=== PATIENT | female | born 1935 | race Caucasian/White ===

== ENCOUNTER 2017-01-23 15:16 | Emergency (ER) | payer MEDICARE, MEDICAID ==
--- NOTE | 2017-01-23 17:08 | EDM.PDOC ---
ED HPI ENT - General Chief Complaint: ENT Problem Stated Complaint: POST OP BLEEDING FROM NOSE Time Seen by Provider: 01/23/17 16:15 Source of Information: Reports: Patient History Limitations: Reports: No limitations - History of Present Illness INITIAL COMMENTS - FREE TEXT/NARRATIVE: Patient is a 81-year-old female who presents to ED with history of recent nosebleed out of both nares. Patient states she recently had a flexible bronchoscopy performed at [facility] for further evaluation of lung abnormalities. States she was almost home to [place] and had some bleeding from her nares that was controlled with direct pressure. She presents to the ED with no bleeding from her nares at this time. She did not feel as if there is any bleeding to the posterior aspect of her pharynx nor is there any nausea/ vomiting, dizziness, or known bleeding disorders. She takes no aspirin and is not chronically anticoagulated. She has no history of recurring nosebleeds. She denies any complaints at this time. Timing/Duration: Reports: Resolved prior to arrival Severity: mild Location: Reports: right nares, left nares - Related Data Allergies/ADRs: Allergies Allergy/AdvReac Type Severity Reaction Status Date / Time acetaminophen Allergy Rash Verified 01/23/17 15:39 [From Darvocet-N] aspirin Allergy Rash Verified 01/23/17 15:39 barley Allergy Rash Verified 01/23/17 15:39 codeine Allergy Rash Verified 01/23/17 15:39 diphenhydramine HCl Allergy Rash Verified 01/23/17 15:39 [From Benadryl] fexofenadine HCl Allergy Rash Verified 01/23/17 15:39 [From Vita] omeprazole [From Prilosec] Allergy Rash Verified 01/23/17 15:39 omeprazole magnesium Allergy Rash Verified 01/23/17 15:39 [From Prilosec] Penicillins Allergy Rash Verified 01/23/17 15:39 petrolatum,white Allergy Rash Verified 01/23/17 15:39 [From Vaseline] Pork/Porcine Containing Allergy Rash Verified 01/23/17 15:39 Products salmeterol xinafoate Allergy Rash Verified 01/23/17 15:39 [From Serevent] theophylline anhydrous Allergy Rash Verified 01/23/17 15:39 [From Howard-Dur] wheat Allergy Rash Verified 01/23/17 15:39 SARDINES Allergy Severe Cough Uncoded 07/22/15 15:16 rye Allergy Mild Rash Uncoded 07/22/15 15:16 seafood Allergy Airway Uncoded 07/22/15 16:59 Tightness Home Meds: Home Meds Calcium Carb & Citrate/Vit D3 [Calcium + Vitamin D3 Caplet] 1,200 mg PO DAILY [History] Clobetasol [Clobetasol Propionate 0.05%] 15 gm TOP BID 03/20/15 [History] Fluticasone Propionate [Flovent HFA 110 MCG] 2 puff INH BID 03/20/15 [History] Isosorbide Mononitrate [Isosorbide Mononitrate ER] 30 mg PO DAILY 03/20/15 [ History] Latanoprost [Xalatan 0.005% Ophth Soln] 1 drop EYEBOTH BEDTIME 03/20/15 [History ] Omeprazole 20 mg PO DAILY 03/20/15 [History] Simvastatin [Zocor] 10 mg PO BEDTIME 03/20/15 [History] Ubidecarenone [Co Q10] 100 mg PO DAILY 03/20/15 [History] Hydrochlorothiazide/Lisinopril [Lisinopril/HCTZ 10-12.5 MG] 1 tab PO DAILY #30 tab 03/22/15 [Rx] Acetaminophen [Tylenol] 2 tab PO ASDIRECTED PRN 01/23/17 [History] Albuterol [Ventolin HFA] 2 puff INH ASDIRECTED PRN 01/23/17 [History] Cranberry 1 tab PO DAILY 01/23/17 [History] Estradiol [Estrace 0.01% Vaginal Crm] 0.5 g TOP ASDIRECTED 01/23/17 [History] Past Medical History HEENT History: Reports: Cataract, Impaired vision Other HEENT History: blind in left eye Cardiovascular History: Reports: Hypertension 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: Reports: Asthma 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 Denies: Nose pain Cardiovascular: Denies: Lightheadedness GI/Abdominal: Denies: Nausea, Vomiting Neurological: Denies: dizziness Hematologic/Lymphatic: Denies: easy bleeding, easy bruising ED EXAM, ENT - Physical Exam Exam: See Below Exam Limited By: No limitations General Appearance: alert, WD/WN, no apparent distress, other (Dry blood on the patient's shirt) Ears: hearing grossly normal Nose: normal inspection, normal mucousa, dried blood (Nares bilaterally no active bleeding). No: nasal deformity, nasal swelling, nasal tenderness, active bleeding Mouth/Throat: Normal inspection, Normal oropharynx, Other (No blood to the posterior pharynx) Neck: normal inspection, supple Respiratory/Chest: no respiratory distress, lungs clear, normal breath sounds Cardiovascular: normal peripheral pulses, regular rate, rhythm Neurological: alert, oriented, normal cognition, no motor/sensory deficits Psychiatric: normal affect, normal mood Skin: Warm, Dry, Intact, Normal color Course - Vital Signs Last Recorded V/S: Last Vital Signs Temp 97.4 F 01/23/17 15:51 Pulse 92 01/23/17 15:51 Resp 18 01/23/17 15:51 BP 177/88 H 01/23/17 15:51 Pulse Ox 94 L 01/23/17 15:51 - Re-Assessments/Exams Free Text/Narrative Re-Assessment/Exam: Examination did not elicit any findings of active bleeding. Bleeding resolved prior to arrival. Will discharge patient home with instructions as documented. 01/23/17 17:05 Departure - Departure Time of Disposition: 17:05 Disposition: Home, Self-Care 01 Condition: good Clinical Impression: Epistaxis Instructions: Nosebleed, [id number] Referrals: Khadijah Kline MD [Primary Care Provider] - Forms: ED Department Discharge Additional Instructions: As discussed if you experience additional nosebleeds apply direct pressure to the nares bilaterally for 15 minutes. Can apply cold compress as well. If The bleeding does not stop please return back to the ED. Suggest not blowing her nose or picking at since this can cause additional trauma causing bleeding. Apply Vaseline to each nare once daily as needed.
== END 2017-01-23 17:18 | disposition home or self-care (01) ==
LOC: JD.ED 15:16
CPT/HCPCS: 99282; 99283

== ENCOUNTER 2017-11-24 05:23 | Emergency (ER) | payer MEDICARE, MEDICAID ==
--- NOTE | 2017-11-24 05:26 | EDM.PDOC ---
ED HPI GENERAL MEDICAL PROBLEM - General Chief Complaint: Laceration Stated Complaint: [facility] Time Seen by Provider: 11/24/17 05:26 - History of Present Illness INITIAL COMMENTS - FREE TEXT/NARRATIVE: 82-year-old female brought in by EMS with a head injury. Patient was coming back to bed and set on her bed and missed she landed on the floor and bumped her head into a piece of furniture besides a bump on her head patient denies any other injury she's had no loss of consciousness. Patient denies any nausea vomiting confusion or balance problems. Patient has not had problems with palpitations breathing difficulty shortness of breath or chest discomfort. Left Head Pain Score (Numeric/FACES): 7 - Related Data Allergies Allergy/AdvReac Type Severity Reaction Status Date / Time acetaminophen Allergy Rash Verified 01/23/17 15:39 [From Darvocet-N] aspirin Allergy Rash Verified 01/23/17 15:39 barley Allergy Rash Verified 01/23/17 15:39 codeine Allergy Rash Verified 01/23/17 15:39 diphenhydramine HCl Allergy Rash Verified 01/23/17 15:39 [From Benadryl] fexofenadine HCl Allergy Rash Verified 01/23/17 15:39 [From Vita] omeprazole [From Prilosec] Allergy Rash Verified 01/23/17 15:39 omeprazole magnesium Allergy Rash Verified 01/23/17 15:39 [From Prilosec] Penicillins Allergy Rash Verified 01/23/17 15:39 petrolatum,white Allergy Rash Verified 01/23/17 15:39 [From Vaseline] Pork/Porcine Containing Allergy Rash Verified 01/23/17 15:39 Products salmeterol xinafoate Allergy Rash Verified 01/23/17 15:39 [From Serevent] theophylline anhydrous Allergy Rash Verified 01/23/17 15:39 [From Howard-Dur] wheat Allergy Rash Verified 01/23/17 15:39 SARDINES Allergy Severe Cough Uncoded 07/22/15 15:16 rye Allergy Mild Rash Uncoded 07/22/15 15:16 seafood Allergy Airway Uncoded 07/22/15 16:59 Tightness Home Meds: Home Meds Calcium Carb & Citrate/Vit D3 [Calcium + Vitamin D3 Caplet] 1,200 mg PO DAILY [History] Clobetasol [Clobetasol Propionate 0.05%] 15 gm TOP BID 03/20/15 [History] Fluticasone Propionate [Flovent HFA 110 MCG] 2 puff INH BID 03/20/15 [History] Isosorbide Mononitrate [Isosorbide Mononitrate ER] 30 mg PO DAILY 03/20/15 [ History] Latanoprost [Xalatan 0.005% Ophth Soln] 1 drop EYEBOTH BEDTIME 03/20/15 [History ] Omeprazole 20 mg PO DAILY 03/20/15 [History] Simvastatin [Zocor] 10 mg PO BEDTIME 03/20/15 [History] Ubidecarenone [Co Q10] 100 mg PO DAILY 03/20/15 [History] Hydrochlorothiazide/Lisinopril [Lisinopril/HCTZ 10-12.5 MG] 1 tab PO DAILY #30 tab 03/22/15 [Rx] Acetaminophen [Tylenol] 2 tab PO ASDIRECTED PRN 01/23/17 [History] Albuterol [Ventolin HFA] 2 puff INH ASDIRECTED PRN 01/23/17 [History] Cranberry 1 tab PO DAILY 01/23/17 [History] Estradiol [Estrace 0.01% Vaginal Crm] 0.5 g TOP ASDIRECTED 01/23/17 [History] Past Medical History HEENT History: Reports: Cataract, Impaired 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 Cardiovascular History: Reports: Hypertension 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: Reports: 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) 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 Social & Family History - Family History Family Medical History: Noncontributory - Tobacco Use Smoking Status *Q: Never Smoker Second Hand Smoke Exposure: No - Caffeine Use Caffeine Use: Reports: Coffee - Recreational Drug Use Recreational Drug Use: No ED ROS GENERAL - Review of Systems Review Of Systems: See Below Constitutional: Reports: No Symptoms HEENT: Reports: No Symptoms Respiratory: Reports: No Symptoms Cardiovascular: Reports: No Symptoms GI/Abdominal: Reports: No Symptoms : Reports: No Symptoms Skin: Reports: Other (Eczema and seborrheic dermatitis) Neurological: Reports: No Symptoms Psychiatric: Reports: No Symptoms ED EXAM, SKIN/RASH Exam: See Below Exam Limited By: No Limitations General Appearance: Alert, No Apparent Distress Eye Exam: Right Eye: Normal Inspection, Left Eye: Other (Clouding of the cornea she's had a significant injury and has no useful vision out of this) Ears: Normal External Exam, Normal Canal, Hearing Grossly Normal, Normal TMs, Other (Hearing aids had to be removed for exam) Nose: Normal Inspection, Normal Mucosa, No Blood Throat/Mouth: Normal Inspection, Normal Oropharynx, No Airway Compromise Head: Other (Left parietal laceration 3 cm) Neck: Normal Inspection, Supple, Non-Tender, Full Range of Motion. No: Lymphadenopathy (L), Lymphadenopathy (R), Tender Midline Respiratory/Chest: No Respiratory Distress, Lungs Clear, Normal Breath Sounds Cardiovascular: Regular Rate, Rhythm, No Edema, No Murmur GI/Abdominal: Normal Bowel Sounds, Soft, Non-Tender Back Exam: Normal Inspection. No: CVA Tenderness (L), CVA Tenderness (R), Muscle Spasm, Vertebral Tenderness Extremities: Normal Inspection, Normal Range of Motion, Non-Tender, No Pedal Edema Neurological: Alert, Oriented, Normal Cognition, Normal Gait Psychiatric: Normal Affect, Normal Mood ED SKIN PROCEDURES - Laceration/Wound Repair Left Head Lac/Wound length In cm: 4 Appearance: Subcutaneous, Clean Anesthetic Type: Local Local Anesthesia - Lidocaine (Xylocaine): 1% Plain Local Anesthetic Volume: 3cc Skin Prep: Saline (Coast. Some amounts of saline used) Exploration/Debridement/Repair: Wound Explored, Explored to Base Closed with: Rupal # of Sutures: 6 Tetanus Status Addressed: Yes (This will be updated at this time) Complications: No Course - Vital Signs Last Recorded V/S: Last Vital Signs Temp 36.6 C 11/24/17 05:26 Pulse 96 11/24/17 05:26 Resp 18 11/24/17 05:26 BP 165/89 H 11/24/17 05:26 Pulse Ox 94 L 11/24/17 05:26 - Orders/Labs/Meds Orders: Active Orders 24 hr Category Date Time Status Vaccines to be Administered [RC] PER UNIT ROUTINE Care 11/24/17 05:48 Active Head wo Cont [CT] Stat Exams 11/24/17 05:50 Taken Meds: Medications Discontinued Medications Generic Name Dose Route Start Last Admin Trade Name Freq PRN Reason Stop Dose Admin Diphtheria/Tetanus/Acell Pertussis 0.5 ml 11/24/17 05:48 11/24/17 06:28 Adacel IM 11/24/17 05:49 0.5 ml .ONCE ONE Administration Lidocaine HCl 10 ml 11/24/17 05:47 11/24/17 06:07 Xylocaine 1% INJECT 11/24/17 05:48 10 ml ONETIME ONE Administration - Re-Assessments/Exams Free Text/Narrative Re-Assessment/Exam: 11/24/17 06:50 Patient tolerated her stable placement without difficulty CT scan was done which showed no acute changes she has some soft tissue swelling in the area laceration. Patient had her tetanus updated. Departure - Departure Time of Disposition: 06:50 Disposition: Home, Self-Care 01 Clinical Impression: Head injury, Scalp laceration - Discharge Information Forms: ED Department Discharge Additional Instructions: Return the emergency room with any questions problems worsening symptoms. Rupal out in 12-14 days. These can be taken out at the Hospital clinic. [phone] they can also be removed here in the emergency room Keep scalp completely dry for the next 24 hours after 24 hours to let water run over the area but do not scrub or scratch. Gently dab dry. - My Orders Last 24 Hours: My Active Orders 11/24/17 05:48 Vaccines to be Administered [RC] PER UNIT ROUTINE 11/24/17 05:50 Head wo Cont [CT] Stat - Assessment/Plan Last 24 Hours: My Active Orders 11/24/17 05:48 Vaccines to be Administered [RC] PER UNIT ROUTINE 11/24/17 05:50 Head wo Cont [CT] Stat
[2017-11-24 05:31] VITALS: BP 165/89
[2017-11-24] MEDS ORDERED: Lidocaine 1% 10 ML MDV INJECT ONE (05:47)
[2017-11-24] MEDS ORDERED: Diphtheria,Pertussis(Acell),Tetanus Vaccine 0.5 ML SDV IM ONE (05:48)
--- NOTE | 2017-11-24 08:06 | CT ---
Head CT Technique: Multiple axial sections through the brain were obtained. Intravenous contrast was not utilized. Comparison: No prior intracranial imaging. Findings: Ventricles along with basal cisterns and sulci over the convexities are mildly prominent. Minimal areas of diminished density noted within the periventricular and subcortical white matter compatible with small vessel ischemic demyelination change. Slight calcification is noted next to the anterior aspect of the interhemispheric falx. This is felt to be incidental. No evidence of intracranial hemorrhage. No midline shift or mass effect is seen. Atherosclerotic calcification is noted within the left vertebral vessel and within the carotid siphon. Skin girish are present with soft tissue swelling within the left parietal scalp. No acute calvarial abnormality is seen. Visualized sinuses are clear. Impression: 1. Soft tissue swelling within the left parietal scalp with skin girish. 2. Mild senescent change as described above. 3. Nothing acute is appreciated on noncontrast head CT exam. Diagnostic code #2 I agree with preliminary report issued by [facility] ([facility] preliminary report dictated on 11/24/17, 7:44 AM Central Time)
== END 2017-11-24 07:25 | disposition home or self-care (01) ==
LOC: JD.ED 05:23
DX: S01.01XA Laceration without foreign body of scalp, initial encounter (principal); S09.90XA Unspecified injury of head, initial encounter; I10 Essential (primary) hypertension; Z88.6 Allergy status to analgesic agent; Z88.1 Allergy status to other antibiotic agents; Z88.0 Allergy status to penicillin; Z88.8 Allergy status to other drugs, medicaments and biological substances; Z91.013 Allergy to seafood; Z91.018 Allergy to other foods; Z23 Encounter for immunization; Z91.09 Other allergy status, other than to drugs and biological substances; Z79.899 Other long term (current) drug therapy; W01.10XA Fall on same level from slipping, tripping and stumbling with subsequent striking against unspecified object, initial encounter
CPT/HCPCS: 12002; 70450; 70450-26; 90471; 90715; 99282; 99284-25

== ENCOUNTER 2017-12-13 02:14 | Emergency (ER) | payer MEDICARE, MEDICAID ==
--- NOTE | 2017-12-13 02:46 | EDM.PDOC ---
ED HPI GENERAL MEDICAL PROBLEM - General Chief Complaint: Back Pain or Injury Stated Complaint: [facility] Time Seen by Provider: 12/13/17 02:26 Source of Information: Reports: Patient, RN History Limitations: Reports: Physical Impairment (Patient is profoundly hard of hearing) - History of Present Illness INITIAL COMMENTS - FREE TEXT/NARRATIVE: The patient is brought by EMS. We are told that they were called to her residence earlier tonight after she fell out of bed. They helped her back to bed , but she refused transport. They were then called back because the patient fell again. The patient states that on both occasions, she was going to the bathroom, using her walker, but that her left foot wouldn't work. The patient cannot say how long her left lower extremity has been weak - her last known normal is unknown. The patient denies suffering any injury with either fall tonight. She denies having any recent fever, chills, cough, chest pain, dyspnea, nausea, vomiting, constipation, diarrhea, or urinary symptoms. The patient has a very strong smell of stale urine. The patient's PCP is Dr. Khadijah Kline. - Related Data Allergies Allergy/AdvReac Type Severity Reaction Status Date / Time acetaminophen Allergy Rash Verified 12/13/17 02:17 [From Darvocet-N] aspirin Allergy Rash Verified 12/13/17 02:17 barley Allergy Rash Verified 12/13/17 02:17 codeine Allergy Rash Verified 12/13/17 02:17 diphenhydramine HCl Allergy Rash Verified 12/13/17 02:17 [From Benadryl] fexofenadine HCl Allergy Rash Verified 12/13/17 02:17 [From Vita] omeprazole [From Prilosec] Allergy Rash Verified 12/13/17 02:17 omeprazole magnesium Allergy Rash Verified 12/13/17 02:17 [From Prilosec] Penicillins Allergy Rash Verified 12/13/17 02:17 petrolatum,white Allergy Rash Verified 12/13/17 02:17 [From Vaseline] Pork/Porcine Containing Allergy Rash Verified 12/13/17 02:17 Products salmeterol xinafoate Allergy Rash Verified 12/13/17 02:17 [From Serevent] theophylline anhydrous Allergy Rash Verified 12/13/17 02:17 [From Howard-Dur] wheat Allergy Rash Verified 12/13/17 02:17 SARDINES Allergy Severe Cough Uncoded 12/13/17 02:17 rye Allergy Mild Rash Uncoded 12/13/17 02:17 seafood Allergy Airway Uncoded 12/13/17 02:17 Tightness Home Meds: Home Meds Calcium Carb & Citrate/Vit D3 [Calcium + Vitamin D3 Caplet] 1,200 mg PO DAILY [History] Clobetasol [Clobetasol Propionate 0.05%] 15 gm TOP BID 03/20/15 [History] Fluticasone Propionate [Flovent HFA 110 MCG] 2 puff INH BID 03/20/15 [History] Isosorbide Mononitrate [Isosorbide Mononitrate ER] 30 mg PO DAILY 03/20/15 [ History] Latanoprost [Xalatan 0.005% Ophth Soln] 1 drop EYEBOTH BEDTIME 03/20/15 [History ] Omeprazole 20 mg PO DAILY 03/20/15 [History] Simvastatin [Zocor] 10 mg PO BEDTIME 03/20/15 [History] Ubidecarenone [Co Q10] 100 mg PO DAILY 03/20/15 [History] Hydrochlorothiazide/Lisinopril [Lisinopril/HCTZ 10-12.5 MG] 1 tab PO DAILY #30 tab 03/22/15 [Rx] Acetaminophen [Tylenol] 2 tab PO ASDIRECTED PRN 01/23/17 [History] Albuterol [Ventolin HFA] 2 puff INH ASDIRECTED PRN 01/23/17 [History] Cranberry 1 tab PO DAILY 01/23/17 [History] Estradiol [Estrace 0.01% Vaginal Crm] 0.5 g TOP ASDIRECTED 01/23/17 [History] Past Medical History HEENT History: Reports: Cataract, Hard of Hearing, Impaired 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 Cardiovascular History: Reports: High Cholesterol, Hypertension 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: Reports: Asthma Gastrointestinal History: Reports: GERD Dermatologic History: Reports: Eczema Social & Family History - Family History Family Medical History: Noncontributory - Tobacco Use Smoking Status *Q: Never Smoker Second Hand Smoke Exposure: No - Caffeine Use Caffeine Use: Reports: Coffee - Alcohol Use Alcohol Use History: No - Recreational Drug Use Recreational Drug Use: No - Living Situation & Occupation Living situation: Reports: Single, Alone Occupation: Retired ED ROS GENERAL - Review of Systems Review Of Systems: ROS reveals no pertinent complaints other than HPI. ED EXAM, NEURO - Physical Exam Exam: See Below Exam Limited By: Physical Impairment (Profoundly hard of hearing) General Appearance: Alert, WD/WN, No Apparent Distress Eye Exam: Left Eye: Other (Left eye cloudy), Bilateral Eye: EOMI Ears: Normal External Exam Nose: Normal Inspection, No Blood Throat/Mouth: Normal Inspection, Normal Lips, Normal Voice, No Airway Compromise , Other (Edentulous) Head Exam: Atraumatic, Normocephalic Neck: Normal Inspection, Full Range of Motion Respiratory/Chest: No Respiratory Distress, Lungs Clear, Normal Breath Sounds, No Accessory Muscle Use Cardiovascular: Normal Peripheral Pulses, Regular Rate, Rhythm, No Gallop, No JVD, No Murmur, No Rub GI/Abdominal: Normal Bowel Sounds, Soft, Non-Tender, No Organomegaly, No Distention, No Abnormal Bruit, No Mass (Female) Exam: Deferred Rectal (Female) Exam: Deferred Neurological: Alert, CN II-XII Intact, Normal Plantar Flexion, Other (Left lower extremity is weak to hip flexion and extension, and knee flexion and extension. Plantar flexion appears to be normal.) Back Exam: Normal Inspection, Full Range of Motion, NT Extremities: Normal Inspection, Normal Range of Motion, No Pedal Edema, Normal Capillary Refill Psychiatric: Normal Affect Skin Exam: Warm, Dry, Intact, Normal Color, Other (Diffuse dry/exematous skin) EKG INTERPRETATION EKG Date: 12/13/17 Time: 03:45 Rhythm: NSR Rate (Beats/Min): 66 [place]: Normal P-Wave: Present QRS: LBBB QT: Normal Comparison: Change From Previous EKG (LBBB new from 07/22/2015) Course - Vital Signs Last Recorded V/S: Last Vital Signs Temp 36.3 C 12/13/17 02:18 Pulse 67 12/13/17 04:14 Resp 18 12/13/17 02:18 BP 156/80 H 12/13/17 04:14 Pulse Ox 92 L 12/13/17 02:18 - Orders/Labs/Meds Orders: Active Orders 24 hr Category Date Time Status EKG Documentation Completion [RC] STAT Care 12/13/17 02:44 Active Orthostatic Vital Signs [RC] STAT Care 12/13/17 02:44 Active Chest 1V Frontal [CR] Stat Exams 12/13/17 02:43 Taken Head wo Cont [CT] Stat Exams 12/13/17 02:42 Taken CULTURE URINE [RM] Stat Lab 12/13/17 04:16 Uncollected Heparin Sodium/D5W [Heparin 25,000 Units in D5W 500 ML] Med 12/13/17 04:15 Active 25,000 units in 500 ml IV TITRATE Magnesium Sulfate/Water [Magnesium Sulfate 2 GM in Med 12/13/17 03:59 Active Water 50 ML] 2 gm Premix Bag 1 bag IV ONETIME Medication Orders Magnesium Sulfate 2 gm/ Premix 50 mls @ 50 mls/hr IV ONETIME ONE Stop: 12/13/17 04:58 Last Admin: 12/13/17 04:29 Dose: 50 mls/hr Heparin Sodium/Dextrose (Heparin 25,000 Units In D5w 500 Ml) 25,000 units in 500 mls @ 13.063 mls/hr IV TITRATE BARTOLO; 12 UNITS/KG/HR PRN Reason: Protocol Last Admin: 12/13/17 04:26 Dose: 13.063 mls/hr Labs: Laboratory Tests 12/13/17 12/13/17 12/13/17 Range/Units 02:44 03:05 03:05 WBC 14.17 H (3.98-10.04) K/mm3 RBC 4.26 (3.98-5.22) M/mm3 Hgb 12.9 (11.2-15.7) gm/L Hct 38.5 (34.1-44.9) % MCV 90.4 (79.4-94.8) fl MCH 30.3 (25.6-32.2) pg MCHC 33.5 (32.2-35.5) g/dl RDW Std Deviation 41.9 (36.4-46.3) fL Plt Count 423 H (182-369) K/mm3 MPV 8.2 L (9.4-12.3) fl Neutrophils % (Manual) 75 H (40-60) % Band Neutrophils % 0 (0-10) % Lymphocytes % (Manual) 9 L (20-40) % Atypical Lymphs % 0 % Monocytes % (Manual) 3 (2-10) % Eosinophils % (Manual) 13 H (0.7-5.8) % Basophils % (Manual) 0 L (0.1-1.2) Toxic Granulation See note Platelet Estimate Increased Plt Morphology Comment Normal RBC Morph Comment Normal PT (8.0-13.0) SECONDS INR APTT (22-36) SECONDS Sodium 128 L (136-145) mEq/L Potassium 3.8 (3.5-5.1) mEq/L Chloride 93 L (98-107) mEq/L Carbon Dioxide 30 (21-32) mEq/L Anion Gap 8.8 (5-15) BUN 7 (7-18) mg/dL Creatinine 0.4 L (0.55-1.02) mg/dL Est Cr Clr Drug Dosing 93.18 mL/min Estimated GFR (MDRD) > 60 (>60) mL/min BUN/Creatinine Ratio 17.5 (14-18) Glucose 91 (83-115) mg/dL Calcium 8.9 (8.5-10.1) mg/dL Magnesium 1.5 L (1.8-2.4) mg/dl Total Bilirubin 0.4 (0.2-1.0) mg/dL AST 28 (15-37) U/L ALT 39 (14-59) U/L Alkaline Phosphatase 85 (46-116) U/L Troponin I 0.110 H* (0.00-0.056) ng/mL Total Protein 6.6 (6.4-8.2) g/dl Albumin 2.7 L (3.4-5.0) g/dl Globulin 3.9 gm/dL Albumin/Globulin Ratio 0.7 L (1-2) TSH 3rd Generation 2.159 (0.358-3.74) uIU/mL Urine Color Yellow (Yellow) Urine Appearance Slt cloudy H (Clear) Urine pH 7.0 (5.0-8.0) Ur Specific [place] 1.015 (1.005-1.030) Urine Protein Negative (Negative) Urine Glucose (UA) Negative (Negative) Urine Ketones Negative (Negative) Urine Occult Blood Negative (Negative) Urine Nitrite Negative (Negative) Urine Bilirubin Negative (Negative) Urine Urobilinogen 0.2 (0.2-1.0) Ur Leukocyte Esterase Trace H (Negative) Urine RBC 0-5 (0-5) /hpf Urine WBC 5-10 H (0-5) /hpf Ur Epithelial Cells 0-5 (0-5) /hpf Urine Bacteria Many H (FEW) /hpf Urine Mucus Not seen (FEW) /hpf 12/13/17 Range/Units 03:05 WBC (3.98-10.04) K/mm3 RBC (3.98-5.22) M/mm3 Hgb (11.2-15.7) gm/L Hct (34.1-44.9) % MCV (79.4-94.8) fl MCH (25.6-32.2) pg MCHC (32.2-35.5) g/dl RDW Std Deviation (36.4-46.3) fL Plt Count (182-369) K/mm3 MPV (9.4-12.3) fl Neutrophils % (Manual) (40-60) % Band Neutrophils % (0-10) % Lymphocytes % (Manual) (20-40) % Atypical Lymphs % % Monocytes % (Manual) (2-10) % Eosinophils % (Manual) (0.7-5.8) % Basophils % (Manual) (0.1-1.2) Toxic Granulation Platelet Estimate Plt Morphology Comment RBC Morph Comment PT 10.2 (8.0-13.0) SECONDS INR 0.94 APTT 28 (22-36) SECONDS Sodium (136-145) mEq/L Potassium (3.5-5.1) mEq/L Chloride (98-107) mEq/L Carbon Dioxide (21-32) mEq/L Anion Gap (5-15) BUN (7-18) mg/dL Creatinine (0.55-1.02) mg/dL Est Cr Clr Drug Dosing mL/min Estimated GFR (MDRD) (>60) mL/min BUN/Creatinine Ratio (14-18) Glucose (83-115) mg/dL Calcium (8.5-10.1) mg/dL Magnesium (1.8-2.4) mg/dl Total Bilirubin (0.2-1.0) mg/dL AST (15-37) U/L ALT (14-59) U/L Alkaline Phosphatase (46-116) U/L Troponin I (0.00-0.056) ng/mL Total Protein (6.4-8.2) g/dl Albumin (3.4-5.0) g/dl Globulin gm/dL Albumin/Globulin Ratio (1-2) TSH 3rd Generation (0.358-3.74) uIU/mL Urine Color (Yellow) Urine Appearance (Clear) Urine pH (5.0-8.0) Ur Specific [place] (1.005-1.030) Urine Protein (Negative) Urine Glucose (UA) (Negative) Urine Ketones (Negative) Urine Occult Blood (Negative) Urine Nitrite (Negative) Urine Bilirubin (Negative) Urine Urobilinogen (0.2-1.0) Ur Leukocyte Esterase (Negative) Urine RBC (0-5) /hpf Urine WBC (0-5) /hpf Ur Epithelial Cells (0-5) /hpf Urine Bacteria (FEW) /hpf Urine Mucus (FEW) /hpf Meds: Medications Generic Name Dose Route Start Last Admin Trade Name Freq PRN Reason Stop Dose Admin Magnesium Sulfate 2 gm/ Premix 50 mls @ 50 mls/hr 12/13/17 03:59 12/13/17 04: 29 IV 12/13/17 04:58 50 mls/hr ONETIME ONE Administration Heparin Sodium/Dextrose 25,000 units in 500 mls @ 13.063 mls/hr 12/13/17 04: 15 12/13/17 04:26 Heparin 25,000 Units In D5w 500 Ml IV 13.063 mls/hr TITRATE BARTOLO Administration Protocol 12 UNITS/KG/HR Discontinued Medications Generic Name Dose Route Start Last Admin Trade Name Freq PRN Reason Stop Dose Admin Metoprolol Tartrate 5 mg 12/13/17 04:00 12/13/17 04:14 Lopressor IVPUSH 12/13/17 04:01 5 mg ONETIME ONE Administration Trimethoprim/Sulfamethoxazole 1 tab 12/13/17 04:16 12/13/17 04:29 Septra Ds PO 12/13/17 04:17 1 tab ONETIME ONE Administration - Re-Assessments/Exams Free Text/Narrative Re-Assessment/Exam: 12/13/17 03:48 Portable chest radiograph reviewed. There is likely cardiomegaly, but no pulmonary vascular congestion to suggest decompensated CHF, however, there is diffuse haziness suggesting pulmonary fibrosis. No pleural effusions seen on this AP view. No focal infiltrate. No pneumothorax. Scoliosis noted. Formal read per the Radiologist pending. 12/13/17 03:50 The patient's ECG demonstrates a left bundle branch block, new from 07/22/2015. 12/13/17 03:51 CT of the head without contrast is read by [facility] as "No acute findings." 12/13/17 04:01 The patient's troponin has returned elevated at 0.110. Combined with the new left bundle branch block on her ECG, we have to consider that the patient has recently suffered an TN. The patient's allergy list includes aspirin, which causes a rash. I have ordered Lopressor 5 mg, and will start the patient on a heparin drip. The patient's magnesium has returned low at 1.5. I have ordered a 2 g Mg-rider. The patient's sodium is low at 128, however, the patient appears to be euvolemic , with normal blood pressure and normal BUN/Cr. This hyponatremia is most consistent with inadequate sodium intake in the setting of hydrochlorothiazide, and the treatment would include increased sodium intake while holding the hydrochlorothiazide. Given her elevated troponin and mild cardiomegaly on her chest radiograph, I am reluctant to order IV fluid. 12/13/17 04:27 [facility] contacted at 04:07. Case discussed with Dr. Juares, Director Law Enforcement at [facility], at 04: 11. He is not sure that the patient's elevated troponin and left bundle branch block represent a new TN, however, he agrees with the treatment that I have given and is willing to consult on the patient. Case then discussed with Dr. Noble, Hospitalist at [facility], at 04: 23. She accepts the patient for transfer. We will transfer by ground. The patient's urinalysis has returned, with trace leukocyte esterase, 5-10 WBCs , and many bacteria. This is consistent with a UTI. A urine culture has been ordered, and I will start the patient on oral Bactrim. 12/13/17 04:35 Both the portable chest radiograph and CT of the head images have been pushed to [facility]. Departure - Departure Time of Disposition: 04:24 Disposition: DC/Tfer to Acute Hospital 02 Condition: Fair Clinical Impression: Elevated troponin, New onset left bundle branch block (LBBB), UTI (urinary tract infection), Hyponatremia, Hypomagnesemia - Discharge Information - My Orders Last 24 Hours: My Active Orders 12/13/17 02:42 Head wo Cont [CT] Stat 12/13/17 02:43 Chest 1V Frontal [CR] Stat 12/13/17 02:44 EKG Documentation Completion [RC] STAT Orthostatic Vital Signs [RC] STAT 12/13/17 03:59 Magnesium Sulfate/Water [Magnesium Sulfate 2 GM in Water 50 ML] 2 gm Premix Bag 1 bag IV ONETIME 12/13/17 04:15 Heparin Sodium/D5W [Heparin 25,000 Units in D5W 500 ML] 25,000 units in 500 ml IV TITRATE 12/13/17 04:16 CULTURE URINE [RM] Stat - Assessment/Plan Last 24 Hours: My Active Orders 12/13/17 02:42 Head wo Cont [CT] Stat 12/13/17 02:43 Chest 1V Frontal [CR] Stat 12/13/17 02:44 EKG Documentation Completion [RC] STAT Orthostatic Vital Signs [RC] STAT 12/13/17 03:59 Magnesium Sulfate/Water [Magnesium Sulfate 2 GM in Water 50 ML] 2 gm Premix Bag 1 bag IV ONETIME 12/13/17 04:15 Heparin Sodium/D5W [Heparin 25,000 Units in D5W 500 ML] 25,000 units in 500 ml IV TITRATE 12/13/17 04:16 CULTURE URINE [RM] Stat
[2017-12-13] MEDS ORDERED: Magnesium Sulfate/Water 2 GM in Premix Bag 1 BAG IV ONE (03:59)
[2017-12-13] MEDS ORDERED: Metoprolol Tartrate 5 MG/5 ML SDV IVPUSH ONE (04:00)
[2017-12-13] MEDS ORDERED: Heparin Sodium/D5W 25,000 UNITS/500 ML BAG IV SCH (04:15)
[2017-12-13] MEDS ORDERED: Sulfamethoxazole/Trimethoprim 800-160 MG Tab PO ONE (04:16)
[2017-12-13 05:32] VITALS: BP 142/76
--- NOTE | 2017-12-13 14:06 | CR ---
Chest: Portable view of the chest was obtained. Comparison: Prior chest x-ray of 07/22/15. Heart is enlarged. Tortuous thoracic aorta is seen. Lung markings are mildly increased which are believed to be chronic. Scoliosis is noted within the spine. Bony structures are osteopenic. Impression: 1. Cardiomegaly. 2. Mild increased central lung markings believed to be chronic. Nothing acute is suspected. Diagnostic code #2
--- NOTE | 2017-12-13 14:06 | CT ---
Head CT Technique: Multiple axial sections through the brain were obtained. Intravenous contrast was not utilized. Comparison: Prior head CT exam of 11/24/17. Findings: Ventricles along with basal cisterns and sulci over the convexities are mildly prominent. Diminished density noted within portions of the periventricular and subcortical white matter which is compatible with small vessel ischemic demyelination change. Incidental calcification within the anterior intrahemispheric falx. No evidence of intracranial hemorrhage. No midline shift or mass effect is seen. No acute calvarial abnormality is identified. Impression: 1. Stable senescent change as noted above. No acute intracranial abnormality is identified. Diagnostic code #2 I agree with preliminary report issued by [facility] ([facility] preliminary report dictated on 12/13/17, 4:49 AM Central Time)
== END 2017-12-13 05:06 ==
LOC: JD.ED 02:14
DX: I44.7 Left bundle-branch block, unspecified (principal); R79.89 Other specified abnormal findings of blood chemistry; N39.0 Urinary tract infection, site not specified; E83.42 Hypomagnesemia; E87.1 Hypo-osmolality and hyponatremia; I10 Essential (primary) hypertension; E78.00 Pure hypercholesterolemia, unspecified; J45.909 Unspecified asthma, uncomplicated; Z88.6 Allergy status to analgesic agent; Z88.5 Allergy status to narcotic agent; Z91.018 Allergy to other foods; Z88.8 Allergy status to other drugs, medicaments and biological substances; Z91.013 Allergy to seafood; Z79.899 Other long term (current) drug therapy
CPT/HCPCS: 36415; 70450; 71045; 80053; 81001; 83735; 84443; 84484; 85025; 85610; 85730; 87086; 87088; 87181; 87184; 93005; 96365; 96368; 96375; 99285; A9270; J1644; P9612; J3475; J3490